=== PATIENT | female | born 2000 | race Caucasian/White ===

== ENCOUNTER 2023-04-28 10:53 | Outpatient (CLI) | payer MEDICAID, SELFPAY ==
--- NOTE | 2023-04-28 11:05 | US_ITS ---
WS: [id number] EARLY OBSTETRICAL ULTRASOUND (<14 WEEKS). HISTORY: SUPERVISION OF OTHER NORMAL , FIRST TRIMESTER COMPARISON: None available. Single intrauterine gestational sac is identified. Cardiac activity at 153 BPM. [place]-rump length joon sures 5.7 cm which corresponds to a gestation of 12w2d. Normal-appearing yolk sac and amnion demonstr ated. No subchorionic hemorrhage. No free fluid. Normal size ovaries with no mass. IMPRESSION: 1. Single intrauterine gestation of 12 weeks 2 days with an EDC of 11/08/2023. 2. Normal cardiac activity.
== END 2023-04-28 10:54 | disposition home or self-care (01) ==
LOC: RAD 10:56
PROVIDERS: Visit Provider Family Medicine
DX: O26.891 Other specified pregnancy related conditions, first trimester (principal); Z3A.12 12 weeks gestation of pregnancy
CPT/HCPCS: 76801

== ENCOUNTER 2023-06-21 11:30 | Outpatient (CLI) | payer MEDICAID, SELFPAY ==
--- NOTE | 2023-06-21 11:33 | US_ITS ---
WS: [id number] OBSTETRICAL ULTRASOUND COMPLETE HISTORY: ANATOMY CHECK/SECOND TRIMESTER COMPARISON: 04/28/2023 Single intrauterine gestation in Cephalic presentation. Cervix is Closed and normal length. Normal amount of amniotic fluid surrounds the fetus. Placenta: Anterior, no previa or abruption. Placenta grade 1 Heart: 141 BPM. Four chambers are identified. RIGHT and LEFT outflow tracts are unremarkable. Anatomy: Intracranial structures and spine are normal. kidneys, stomach and urinary bladd er are unremarkable. Abdominal wall, three-vessel cord and cord insertion site are normal. 4 extremities are present. profile: Unremarkable. Gender: Male. measurements: BPD = 4.6 cm = 20w0d; HC = 17.3 cm = 19w6d; AC = 14.9 cm = 20w1d; FL = 3.0 cm = 19w2d; EFW: 312 g. Biometry is internally concordant. AGA by ultrasound: 19w6d KAIT by ultrasound: 11/09/2023 IMPRESSION: 1. Single intrauterine gestation of 19w6d with an KAIT of 11/09/2023. Appropriate growth since the pr ior ultrasound. 2. Unremarkable screening survey of anatomy.
== END 2023-06-21 11:31 | disposition home or self-care (01) ==
LOC: RAD 11:30
PROVIDERS: PCP Family Medicine; Visit Provider Family Medicine
DX: Z34.82 Encounter for supervision of other normal pregnancy, second trimester (principal)
CPT/HCPCS: 76805

== ENCOUNTER 2023-07-07 15:00 | Outpatient (CLI) | payer MEDICAID, SELFPAY ==
[2023-07-07] VITALS (11 sets, daily range): BP systolic 90–110; BP diastolic 49–62; PULSE 66–81; BMI 32.4
[2023-07-07 16:18] LABS: Add Urine Culture? No; Bacteria Urine TRACE /hpf; Bilirubin Urine Neg (Negative); Blood Urine Neg (Negative); Glucose Urine UA Norm (Normal); Ketones Urine Negative (Negative); Leukocyte Esterase Urine Negative (Negative); Nitrate Urine Negative (Negative); Protein Urine Neg (Negative); RBC Urine 0-4 /hpf (0-2); Squamous Epithelial Cell Urine 0-4 /hpf (0-5); Urine Appearance Clear (CLEAR); Urine Color Yellow (Yellow); Urobilinogen Urine Norm (Negative); WBC Urine 0-4 /hpf (0-5); pH Urine 9 (5-7)
[2023-07-07] MEDS: acetaminophen 500 mg Tablet 1000 MG PO (17:00)
== END 2023-07-07 17:55 | disposition home or self-care (01) ==
LOC: OPOB 15:01 → OBGYN 15:02
PROVIDERS: PCP Family Medicine; Visit Provider Family Medicine
DX: O26.899 Other specified pregnancy related conditions, unspecified trimester (principal); Z3A.00 Weeks of gestation of pregnancy not specified; R10.9 Unspecified abdominal pain
CPT/HCPCS: 59025; 81001; 99211

== ENCOUNTER 2023-10-25 11:05 | Outpatient (CLI) | payer MEDICAID, SELFPAY ==
[2023-10-25 11:05] VITALS: BMI 35.4
[2023-10-25 11:27] VITALS: TEMP 35.9
[2023-10-25 11:28] VITALS: BP 123/86; PULSE 80
[2023-10-25 11:49] VITALS: BP 117/79; PULSE 85
[2023-10-25 11:53] LABS: Add Urine Microscopic? NO; Charge for UA Resulting for Rev
[2023-10-25 11:56] LABS: Basophils % 0.4 %; Eosinophils # 0.1 10^3/uL (0.0-0.8); Eosinophils % 0.5 %; Hematocrit 40.6 % (36-47); Lymphocytes # 2.1 10^3/uL (0.8-4.8); Lymphocytes % 19.3 %; Mean Corpuscular HGB Conc 33.7 g/dL (30-55); Mean Corpuscular Hemoglobin 29.3 pg (27-33); Mean Corpuscular Volume 86.8 fl (85-98); Mean Platelet Volume 11.2 fL (7.4-10.4); Monocytes # 0.6 10^3/uL (0.2-0.9); Monocytes % 5.2 %; Neutrophils # 8.05 10^3/uL (1.8-7.7); Neutrophils % 74.3 %; Nucleated Red Blood Cells % 0 %; Platelet Count 230 10^3/cmm (157-399); Red Blood Count 4.68 10^6/uL (3.85-5.65); Red Cell Distribution Width 13.3 % (12.1-15.1); White Blood Count 10.82 10^3/uL (3.29-11.43)
[2023-10-25 12:01] LABS: Bilirubin Urine Neg (Negative); Blood Urine Neg (Negative); Glucose Urine UA Norm (Normal); Ketones Urine Negative (Negative); Leukocyte Esterase Urine Negative (Negative); Nitrate Urine Negative (Negative); Protein Urine Neg (Negative); Specific Gravity, Urine 1.005 (1.005-1.030); Urine Appearance Clear (CLEAR); Urine Color Yellow (Yellow); Urobilinogen Urine Norm (Negative); pH Urine 7 (5-7)
[2023-10-25 12:08] VITALS: BP 118/77; PULSE 82
[2023-10-25 12:13] LABS: Alanine Aminotransferase 12 U/L (0-33); Albumin Level 3.3 g/dL (3.5-5.2); Alkaline Phosphatase 190 U/L (35-105); Aspartate Amino Transferase 19 U/L (0-32); Chloride 105 mmol/L (98-107); Globulin 3.5 g/dL (1.3-4.6); Glucose 93 mg/dL (65-115); Potassium 4.1 mmol/L (3.5-5.1); Sodium 135 mmol/L (136-145); Total Protein 6.8 g/dL (6.6-8.7); Uric Acid 3.2 mg/dL (2.4-5.7)
[2023-10-25 12:14] LABS: Urine Creatinine 36 mg/dL (28-217); Urine Protein Random 4 mg/dL
[2023-10-25 12:16] LABS: UPRO/UCREAT Ratio 0.11 mg/mg CR
[2023-10-25 12:29] LABS: Anion Gap 15.1 (5-19); Blood Urea Nitrogen 9 mg/dL (6-20); Carbon Dioxide 19 mmol/L (22-29); Osmolality Calculated 278 mOsm/kg (285-295); Total Bilirubin 0.2 mg/dL (0.15-1.2)
[2023-10-25 12:48] VITALS: BP 124/84; PULSE 63
== END 2023-10-25 12:53 | disposition home or self-care (01) ==
LOC: OPOB 11:15 → OBGYN 11:16
PROVIDERS: PCP Family Medicine; Visit Provider Family Medicine
DX: O16.9 Unspecified maternal hypertension, unspecified trimester (principal); Z3A.00 Weeks of gestation of pregnancy not specified
CPT/HCPCS: 36415; 59025; 80053; 81003; 82570; 84156; 84550; 85025; 99211

== ENCOUNTER 2023-10-26 12:03 | Outpatient (CLI) | payer MEDICAID, SELFPAY ==
[2023-10-26 12:28] VITALS: BP 129/72; PULSE 88
[2023-10-26 12:49] VITALS: BP 120/86; PULSE 78
[2023-10-26 13:08] VITALS: BP 129/88; PULSE 75
== END 2023-10-26 13:20 | disposition home or self-care (01) ==
LOC: OPOB 12:11 → OBGYN 12:12
PROVIDERS: PCP Family Medicine; Visit Provider Family Medicine
DX: O16.9 Unspecified maternal hypertension, unspecified trimester (principal); Z3A.00 Weeks of gestation of pregnancy not specified; R51.9 Headache, unspecified
CPT/HCPCS: 59025; 99211

== ENCOUNTER 2023-11-01 21:21 | Inpatient (IN) | payer MEDICAID, SELFPAY ==
[2023-11-01] VITALS (49 sets, daily range): BP systolic 107–170; BP diastolic 59–102; PULSE 64–105; RESP 16–18; TEMP 36.9; O2SAT 98–99; BMI 35.3
[2023-11-01] MEDS: miSOPROStol 100 mcg tablet 25 MCG VAGINAL (11:45)
[2023-11-01 12:12] LABS: Amphetamines Screen Urine Negative (Negative); Barbiturates Screen Urine Negative (Negative); Benzodiazepines Screen Urine Negative (Negative); Cocaine Screen Urine Negative (Negative); Opiate Screen Urine Negative (Negative); PCP Screen Urine Negative (Negative); THC Screen Urine Positive (Negative)
[2023-11-01 12:49] LABS: Basophils # 0.1 10^3/uL (0.0-0.1); Basophils % 0.5 %; Eosinophils # 0.1 10^3/uL (0.0-0.8); Eosinophils % 0.8 %; Hematocrit 38.2 % (36-47); Lymphocytes # 1.9 10^3/uL (0.8-4.8); Lymphocytes % 18.2 %; Mean Corpuscular HGB Conc 33.5 g/dL (30-55); Mean Corpuscular Hemoglobin 29.5 pg (27-33); Mean Platelet Volume 11.3 fL (7.4-10.4); Monocytes # 0.5 10^3/uL (0.2-0.9); Monocytes % 5.1 %; Neutrophils # 7.71 10^3/uL (1.8-7.7); Neutrophils % 75.1 %; Nucleated Red Blood Cells % 0 %; Platelet Count 218 10^3/cmm (157-399); Red Blood Count 4.34 10^6/uL (3.85-5.65); Red Cell Distribution Width 13.5 % (12.1-15.1); White Blood Count 10.26 10^3/uL (3.29-11.43)
--- NOTE | 2023-11-01 14:37 | PM.OBGYHP ---
Providers/Chief Complaint Admitting Physician: Jie Javier DO Primary Care Provider: Jie Javier DO Chief Complaint: Induction HPI TECHNICAL ADMINISTRATIVE ASSISTANT History of Present Illness Madonna Moses is a 22 year old female at 39w0d based on sure LMP c/w 12 wk US presenting for induction of labor with past medical history of depression/anxiety not currently on medications, intermittent asthma, history of past meth use, marijuana use, tobacco use. labs wnl. UDS positive for marijuana only. Denies cramping/contractions, LOF, vaginal bleeding. Good movement. care was good and starting in first trimester. Notable hx for meth use and does not have custody of her first child because of prior meth use. She has been very open about her past and has denied any meth use during this . Was clean prior to getting as well. She has had a couple mild range elevated blood pressures at home but only one persistent elevated mild range blood pressure in office. Pre-eclampsia work-up at time of elevated blood pressures was normal. Present Details : 2 Para: 1 Labs Blood type OB HPI: O (+) positive Rubella: Immune RPR: Negative GBS: Negative HBsAG: Negative Other Lab Information: HIV negative GC/Chlam negative Initial H/H 13.4/39.2 VZV immune UDS positive for cannabinoids Pap smear NILM [id number] negative for oiampsr45, 18, 21 1hr GTT passed (72) 3rd trimester H/H 12.5/36.1 Review of Systems Const: Denies: fever(s) or chills Card: Denies: chest pain or palpitations Resp: Denies: dyspnea or productive cough : Denies: difficulty voiding, dysuria or vaginal bleeding Medications/Allergies Home Medications Medication Instructions Recorded Confirmed Last Taken Type acetaminophen 500 mg tablet 500 mg PO Q6H PRN Pain 07/07/23 10/25/23 Unknown History albuterol 2 07/07/23 Unknown History 114-iron a-g-folate 1 1 tab PO DAILY 07/07/23 10/25/23 10/31/23 08:00 History escitalopram oxalate 5 mg/5 mL 5 mg PO DAILY 10/25/23 10/25/23 10/31/23 10:00 History oral solution Allergies Allergy/AdvReac Type Severity Reaction Status Date / Time No Known Allergies Allergy Verified 07/07/23 15:59 History History History 2 Term 1 0 Miscarriages/Ectopic 0 Living Children 1 Vitals/I&O/Wt Last Vital Signs Temp 98.4 F 11/01/23 13:20 Pulse 78 11/01/23 13:41 Resp 18 11/01/23 13:20 BP 110/73 11/01/23 13:41 O2 Del Method Room Air 11/01/23 10:45 Weight last 48 hrs Weight 181 lb Weight 181 lb Physical Exam Const: COMMON NORMALS: no acute distress, healthy appearing, alert and well nourished Resp: COMMON NORMALS: normal respiratory effort and clear to auscultation bilaterally Cardio: COMMON NORMALS: no JVD, regular rate, regular rhythm, S1 normal heart sound present, S2 normal heart sound present and No murmurs present (Cardio) Extremity: NARRATIVE EXTREMITY EXAM: No LE edema Psych: COMMON NORMALS: cooperative, normal affect and speech normal Data 11/01/23 11:40 Results Labs OB ([facility]): Blood Type O Positive 11/01/23 Antibody Screen Negative 11/01/23 Hct 38.2 % (36-47) 11/01/23 Hgb 12.80 g/dL (11.27-16.99) 11/01/23 Rho(D) Type Rh positive 11/01/23 Plt Count 218 10^3/cmm (157-399) 11/01/23 Uric Acid 3.2 mg/dL (2.4-5.7) 10/25/23 Urine Opiates Screen Negative ng/mL (Negative) 11/01/23 Ur Barbiturates Screen Negative ng/mL (Negative) 11/01/23 Ur Phencyclidine Scrn Negative ng/mL (Negative) 11/01/23 Ur Amphetamines Screen Negative ng/mL (Negative) 11/01/23 U Benzodiazepines Scrn Negative ng/mL (Negative) 11/01/23 Urine Cocaine Screen Negative ng/mL (Negative) 11/01/23 U Marijuana (THC) Screen Positive ng/mL (Negative) H 11/01/23 A&P Assessment and plan (1) Term : (2) Elective induction of labor planned: Plan 22yo at 39w0d presenting for elective induction of labor- admitted. 1 dose cytotec with initial SVE of 2/50/-3 and repeat exam after 4 hours 3/60/-2. Routine CBC, UDS due to hx. Ctx irregular q2-5 minutes after cytotec. Intermittent EFM as long as Category I FHT. Has been Category I FHT since admission. Consider AROM and continue expectant management. Plan to add pitocin if cervical change does not continue. Fentanyl protocol. May have epidural if desired. Attestations Medical Necessity Statement*: Madonna Moses's hospital stay will require greater than 2 midnights for labor and delivery and care. Coding Level of Care Code Acute Code for Chg Fwd Diagnoses Term Z34.90 Elective induction of labor planned
[2023-11-01] MEDS: lactated ringers 1,000 ML 999 ML IV ×2 (16:55→21:00)
[2023-11-01] MEDS: oxytocin 30 UNIT/500 ML BAG 600 UNIT IV (21:14)
--- NOTE | 2023-11-01 21:33 | PM.DELIVERY ---
Delivery Note: Date of delivery: November 01, 2023 Pre-delivery diagnoses: Term Induction of labor Post-delivery diagnoses: Term delivery of viable male Procedure: Spontaneous vaginal delivery Delivering Physician: Jie Javier DO Estimated blood loss (mL): 150 Pre-Delivery Course: Patient was admitted on 11/01/2023 with an SVE of 2/50/-3. She was given 1 dose Cytotec and rechecked 4 hours later with cervical change to 3/60/-3. At that point her contractions were gradually increasing and AROM was performed at 1645 with clear fluid with SVE of 4/80/-3 following. She then obtained an epidural anesthesia and gradually progressed to complete. heart tones overall category I with 2 deep late decelerations after AROM that resolved with positioning. Delivery: Patient progressed to complete. Patient placed in lithotomy position. Patient pushed with adequate effort. Head delivered in KELBY position, no nuchal cord was present. Shoulders and rest of body delivered without difficulty with adequate epidural anesthesia. Mouth and nares bulb suctioned. Infant placed on maternal abdomen. Cord clamped and cut after 1 minute delay. Placenta spontaneously delivered and noted to be intact. Pitocin started. Fundus was noted to be firm with massage. The vagina and cervix were inspected and no lacerations were noted. Bilateral periurethral abrasions were noted. Fundus was again noted to be firm. Male born at 2110 with 8/9 weighing 6 pounds 8 ounces and measuring 20 inches in length, 13.75 head circumference and 12.5 inches chest circumference. Placenta noted to be intact with centrally inserted umbilical cord and three-vessel cord. Complications: Maternal none Infant none History History History 2 Term 2 0 Miscarriages/Ectopic 0 Living Children 2 A&P Assessment and plan (1) Spontaneous vaginal delivery: Coding Level of Care Code Acute Code for Chg Fwd Diagnoses Spontaneous vaginal delivery O80
--- NOTE | 2023-11-01 23:00 | P.ANESASSM_ITS ---
Pre-Anesthetic Assessment Height/Weight: Height 1.52 m Weight 82.1 kg Temp Pulse Resp BP Pulse Ox O2 Del Method 98.1 F 80 18 114/70 99 Room Air 11/02/23 06:00 11/02/23 06:00 11/02/23 06:00 11/02/23 06:00 11/01/23 17:23 11/01/23 10:45 Epidural Familial anesthetic complications: None Was Beta Marino taken within 24 hours: N/A Was Clonidine taken within 24 hours: N/A Social No alcohol and No tobacco Exam alert, oriented x 3, clear to auscultation bilaterally and regular rate & rhythm Anesthetic Plan ASA status: 2 Risk of > 500 ml blood loss (7ml/kg in children): Yes, adequate IV access and fluids planned Medications/Allergies Home Medications Medication Instructions Recorded Confirmed Last Taken Type acetaminophen 500 mg tablet 500 mg PO Q6H PRN Pain 07/07/23 10/25/23 Unknown History albuterol 2 07/07/23 Unknown History 114-iron a-g-folate 1 1 tab PO DAILY 07/07/23 10/25/23 10/31/23 08:00 History escitalopram oxalate 5 mg/5 mL 5 mg PO DAILY 10/25/23 10/25/23 10/31/23 10:00 History oral solution Allergies Allergy/AdvReac Type Severity Reaction Status Date / Time No Known Allergies Allergy Verified 07/07/23 15:59 PFSH Anesthesia Female Reproductive History : 2 Data Anesthesia 11/01/23 11:40 Short CBC 11/01/23 Range/Units 11:40 WBC 10.26 (3.29-11.43) 10^3/uL Hgb 12.80 (11.27-16.99) g/dL Hct 38.2 (36-47) % MCV 88.0 (85-98) fl Plt Count 218 (157-399) 10^3/cmm Neut % (Auto) 75.1 % Neut # (Auto) 7.71 H (1.8-7.7) 10^3/uL Blood Bank 11/01/23 11:40 Blood Type O Positive Rho(D) Type Rh positive Antibody Screen Negative Cardiac Studies: 2 No Data to Display Anesthesia Procedures Epidural Time Out Performed: Yes Consents Signed: Procedure Consent Consent: requested by attending/covering physician, from patient, from other, risks and benefits reviewed and patient agrees to proceed Lumbar Level: L3-L4 Epidural position: sitting Epidural procedure: sterile prep of area, 1% lidocaine to numb the area, 18 g needle, negative for paresthesia passed, neg for paresthesia, test dose given, 1.5% xylocaine 1:200k epi (5), 0.2% Ropivacaine bolus ml (5), placed PCEA, no systemic response, sterile dressing applied, L.U.D. no apparent complications and 0.2% Ropiavacaine @ mls/hr (13) Additional Comments: YOSHI at 5 cm, threaded to 11 cm Other Information patient seen, evaluated and procedure performed 11/01/2023 at approximately 1715
[2023-11-02] VITALS (10 sets, daily range): BP systolic 110–133; BP diastolic 66–86; PULSE 78–93; RESP 16–18; TEMP 36.6–37; O2SAT 98
--- NOTE | 2023-11-02 08:00 | ANE.PACU2 ---
Inpatient post-anesthesia follow up: Airway intact: Yes Vital signs: Temperature 98.2 F Pulse Rate 87 Respiratory Rate 16 Blood Pressure 127/85 Pulse Oximetry 98 Oxygen Delivery Me thod Room Air Oxygen Flow Rate Fraction of Inspir ed Oxygen Hydration adequate: Yes Nausea and vomiting: No Pain level: 1 Mental status: Baseline Epidural Start/End: Epidural Start Date: 11/01/23 Epidural Start Time: 17:10 Epidural End Date: 11/01/23 Epidural End Time: 21:30
[2023-11-02] MEDS: escitalopram 10 mg Tablet 5 MG PO (08:30)
[2023-11-02] MEDS: PRENATAL VIT NO.130/IRON/FOLIC 1 EACH TABLET PO (08:30)
[2023-11-02] MEDS: docusate sodium 100 mg Capsule PO (08:30)
[2023-11-02] MEDS: ibuprofen 800 mg tablet PO (08:30)
[2023-11-02 08:50] LABS: Hematocrit 39.6 % (36-47); Mean Corpuscular HGB Conc 33.6 g/dL (30-55); Mean Corpuscular Hemoglobin 29.6 pg (27-33); Mean Corpuscular Volume 88.2 fl (85-98); Mean Platelet Volume 11.3 fL (7.4-10.4); Platelet Count 212 10^3/cmm (157-399); Red Blood Count 4.49 10^6/uL (3.85-5.65); Red Cell Distribution Width 13.4 % (12.1-15.1); White Blood Count 15.68 10^3/uL (3.29-11.43)
--- NOTE | 2023-11-02 20:21 | PM.OBGYDC ---
Discharge Providers CAMPAIGN COORDINATOR Date of Admission: 11/01/23 21:21 Date of Discharge: 11/02/23 Attending Provider at Admission: Jie Javier DO Attending Provider at Discharge: Jie Javier DO Primary Care Provider: Jie Javier DO Diagnoses at Discharge Discharge Diagnosis (1) Spontaneous vaginal delivery: Status: Acute Reason for Visit Reason for Visit: Induction Hospital Course Hospital Course Estimated blood loss (mL): 150 Pre-Delivery Course: Patient was admitted on 11/01/2023 with an SVE of 2/50/-3. She was given 1 dose Cytotec and rechecked 4 hours later with cervical change to 3/60/-3. At that point her contractions were gradually increasing and AROM was performed at 1645 with clear fluid with SVE of 4/80/-3 following. She then obtained an epidural anesthesia and gradually progressed to complete. heart tones overall category I with 2 deep late decelerations after AROM that resolved with positioning. Delivery: Patient progressed to complete. Patient placed in lithotomy position. Patient pushed with adequate effort. Head delivered in KELBY position, no nuchal cord was present. Shoulders and rest of body delivered without difficulty with adequate epidural anesthesia. Mouth and nares bulb suctioned. Infant placed on maternal abdomen. Cord clamped and cut after 1 minute delay. Placenta spontaneously delivered and noted to be intact. Pitocin started. Fundus was noted to be firm with massage. The vagina and cervix were inspected and no lacerations were noted. Bilateral periurethral abrasions were noted. Fundus was again noted to be firm. Male born at 2110 with 8/9 weighing 6 pounds 8 ounces and measuring 20 inches in length, 13.75 head circumference and 12.5 inches chest circumference. Placenta noted to be intact with centrally inserted umbilical cord and three-vessel cord. Complications: Maternal none none course: Patient underwent on 11/01/23. course was uncomplicated. Following delivery patient ambulated well, tolerated a normal diet without nausea or vomiting. Pain was well controlled on PO medications, well, no leg/calf pain, no calf/leg swelling, normal urination, passing gas and normal bowel movements. Vaginal bleeding thin lochia and decreasing. labs significant for hemoglobin of 13.3. Follow-up planned for 2 and 6 weeks . Warning signs for endometritis, pre-eclampsia, DVT/PE, mastitis were reviewed, discussed additional warning signs including increased vaginal bleeding, worsening abdominal pain. Pelvic rest and activity precautions reviewed as well. She is discharged on 11/02/23 in stable condition. Information Peripartum Data: Delivery Method: Vaginal Physical Exam Const: COMMON NORMALS: no acute distress, healthy appearing, alert and well nourished Neck/C-Spine: COMMON NORMALS: no JVD Resp: COMMON NORMALS: normal respiratory effort and clear to auscultation bilaterally AUSCULTATION: clear to auscultation bilaterally Cardio: COMMON NORMALS: no JVD, regular rate, regular rhythm, S1 normal heart sound present, S2 normal heart sound present and No murmurs present (Cardio) RATE: regular rate RHYTHM: regular rhythm HEART SOUNDS: S1 normal heart sound present and S2 normal heart sound present : OTHER: Uterine fundus firm and below the umbilicus Extremity: NARRATIVE EXTREMITY EXAM: No LE edema Neuro: SENSORIUM/ORIENTATION: Yes alert Psych: COMMON NORMALS: cooperative, normal affect and speech normal SPEECH: Yes normal speech Urinary Catheter Management: Lucas: Cath Placed During This Visit: yes, but has since been removed by the nurse Reason for Continuing Indwelling Catheter: Required Immobilization for Trauma or Surgery or Anesthesia Urinary Catheter Date of Insertion: 11/01/23 Urinary Catheter Time of Insertion: 17:35 Date Urinary Catheter Removed: 11/01/23 Time Urinary Catheter Discontinued: 20:30 History History History 2 Term 2 0 Miscarriages/Ectopic 0 Living Children 2 Discharge Data Studies Completed and Pending Laboratory Results WBC 15.68 10^3/uL (3.29-11.43) H 11/02/23 08:38 RBC 4.49 10^6/uL (3.85-5.65) 11/02/23 08:38 Hgb 13.30 g/dL (11.27-16.99) 11/02/23 08:38 Hct 39.6 % (36-47) 11/02/23 08:38 MCV 88.2 fl (85-98) 11/02/23 08:38 MCH 29.6 pg (27-33) 11/02/23 08:38 MCHC 33.6 g/dL (30-55) 11/02/23 08:38 RDW 13.4 % (12.1-15.1) 11/02/23 08:38 Plt Count 212 10^3/cmm (157-399) 11/02/23 08:38 MPV 11.3 fL (7.4-10.4) H 11/02/23 08:38 Neut % (Auto) 75.1 % 11/01/23 11:40 Lymph % (Auto) 18.2 % 11/01/23 11:40 [place] % (Auto) 5.1 % 11/01/23 11:40 Eos % (Auto) 0.8 % 11/01/23 11:40 Baso % (Auto) 0.5 % 11/01/23 11:40 Neut # (Auto) 7.71 10^3/uL (1.8-7.7) H 11/01/23 11:40 Lymph # (Auto) 1.9 10^3/uL (0.8-4.8) 11/01/23 11:40 [place] # (Auto) 0.5 10^3/uL (0.2-0.9) 11/01/23 11:40 Eos # (Auto) 0.1 10^3/uL (0.0-0.8) 11/01/23 11:40 Baso # (Auto) 0.1 10^3/uL (0.0-0.1) 11/01/23 11:40 Nucleated RBC % (auto) 0 % 11/01/23 11:40 Nucleated RBCs # 0.0 /100WBC 11/01/23 11:40 Urine Opiates Screen Negative ng/mL (Negative) 11/01/23 11:00 Ur Barbiturates Screen Negative ng/mL (Negative) 11/01/23 11:00 Ur Phencyclidine Scrn Negative ng/mL (Negative) 11/01/23 11:00 Ur Amphetamines Screen Negative ng/mL (Negative) 11/01/23 11:00 U Benzodiazepines Scrn Negative ng/mL (Negative) 11/01/23 11:00 Urine Cocaine Screen Negative ng/mL (Negative) 11/01/23 11:00 U Marijuana (THC) Screen Positive ng/mL (Negative) H 11/01/23 11:00 Blood Type O Positive 11/01/23 11:40 Rho(D) Type Rh positive 11/01/23 11:40 Antibody Screen Negative 06/05/24 11:40 Vitals Last Vital Signs Temp 98.1 F 11/02/23 09:23 Pulse 82 11/02/23 09:23 Resp 16 11/02/23 09:23 BP 127/79 11/02/23 09:23 Pulse Ox 98 11/02/23 09:23 O2 Del Method Room Air 11/02/23 09:23 Results Labs OB ([facility]): Blood Type O Positive 11/01/23 Antibody Screen Negative 11/01/23 Hct 39.6 % (36-47) 11/02/23 Hgb 13.30 g/dL (11.27-16.99) 11/02/23 Rho(D) Type Rh positive 11/01/23 Plt Count 212 10^3/cmm (157-399) 11/02/23 Uric Acid 3.2 mg/dL (2.4-5.7) 10/25/23 Urine Opiates Screen Negative ng/mL (Negative) 11/01/23 Ur Barbiturates Screen Negative ng/mL (Negative) 11/01/23 Ur Phencyclidine Scrn Negative ng/mL (Negative) 11/01/23 Ur Amphetamines Screen Negative ng/mL (Negative) 11/01/23 U Benzodiazepines Scrn Negative ng/mL (Negative) 11/01/23 Urine Cocaine Screen Negative ng/mL (Negative) 11/01/23 U Marijuana (THC) Screen Positive ng/mL (Negative) H 11/01/23 Discharge Plan Discharge Patient Disposition: Home Condition: Stable Prescriptions: New ibuprofen 800 mg Tablet 800 mg PO TID Qty: 90 0RF docusate sodium 100 mg Capsule 100 mg PO BID Qty: 60 0RF Continued acetaminophen 500 mg Tablet 500 mg PO Q6H PRN (Reason: Pain) albuterol 2 114-iron a-g-folate 1 1 tab PO DAILY escitalopram oxalate 5 mg/5 mL Solution 5 mg PO DAILY Discharge Orders: Discharge Order (Routine); Ordered 11/02/23 Ordered By: Jie Javier Discharge Diet: Regular Discharge Activity: Increase activity as tolerated Patient Instructions: Depression (DC), Preeclampsia and Eclampsia After Delivery (GEN), Hemorrhage (DC), OB Discharge Report, OB Food/Drug Interaction Guide, OB Care at Home, Opioid Safety Activity Restrictions/Additional Instructions: Pelvic rest for 6 weeks. Follow-up with Dr. Javier at 2 and 6 weeks . Discharge Attestations CAMPAIGN COORDINATOR Time Spent in Discharge Care*: less than 30 min Coding Level of Care Code Acute Code for Chg Fwd Diagnoses Spontaneous vaginal delivery O80
== END 2023-11-02 23:35 | disposition home or self-care (01) | DRG 807 ==
LOC: OPOB 21:21 → OBGYN 21:21
PROVIDERS: Admitting Provider Family Medicine; PCP Family Medicine; Visit Provider Family Medicine
DX: O99.324 Drug use complicating childbirth (principal); Z37.0 Single live birth; F12.90 Cannabis use, unspecified, uncomplicated; O76 Abnormality in fetal heart rate and rhythm complicating labor and delivery; O99.52 Diseases of the respiratory system complicating childbirth; Z3A.39 39 weeks gestation of pregnancy; F15.11 Other stimulant abuse, in remission; J45.20 Mild intermittent asthma, uncomplicated
CPT/HCPCS: 36415; 51702; 59025; 59409; 80306; 85025; 85027; 86850; 86900; 99211; J2590; J7120

== ENCOUNTER 2024-11-16 20:07 | Emergency (ER) | payer MEDICAID, SELFPAY ==
[2024-11-16 20:14] VITALS: BP 96/64; PULSE 73; RESP 16; TEMP 36.8; O2SAT 96; BMI 36.1
--- NOTE | 2024-11-16 20:18 | ECG_ITS ---
[facility] Pat Name: Madonna Moses Department: Room: Gender: Female Refrigeration Unit Repairer: : [id number] Requested By: Sara Ivory Order Number: [id number] Lundy MD: Mayte France M.D. Measurements Intervals [place] Rate: 80 P: 65 UT: 140 QRS: 70 QRSD: 90 T: 64 QT: 360 QTc: 417 Interpretive Statements SINUS RHYTHM WITH SINUS ARRHYTHMIA No previous ECG available for comparison Electronically Signed On 11-17-2024 19:19:26 CDT by Mayte France M.D. [email or web address]
--- NOTE | 2024-11-16 20:42 | XRR_ITS ---
PROCEDURE INFORMATION: Exam: XR Chest Exam date and time: 11/16/2024 9:30 PM Age: 23 years old Clinical indication: Chest pressure; PT arrives with C/O chest pain. PT stated when the pain started it was medial chest then radiated to the right side into her abd. PT stated it felt like a burning sensation when it started. ; Additional info: Cp TECHNIQUE: Imaging protocol: Radiologic exam of the chest. Views: 1 view. COMPARISON: No relevant prior studies available. FINDINGS: Lungs: Mildly hypoinflated, but appear clear. No consolidation. Pleural spaces: No significant pleural effusion. No pneumothorax. Heart/Mediastinum: Within normal limits. Bones/joints: Intact. Other findings: None. XR/XR chest 1V portable [id number] IMPRESSION: 1. Mild pulmonary hypoinflation. 2. No radiographic evidence for acute cardiopulmonary disease.
[2024-11-16 21:26] VITALS: BP 120/67; PULSE 78; RESP 16; O2SAT 97
--- NOTE | 2024-11-16 21:36 | W.ED.ABDPA2 ---
HPI - Abdominal Pain General: Chief Complaint: Chest Pain Stated Complaint: CP Going down R Side feels Tight Time Seen by Provider: 11/16/24 20:13 Source: patient Mode of arrival: ambulatory Limitations: no limitations History of Present Illness: Patient is a 23-year-old female presents to ED today with complaint of chest and abdominal pain. She states around 5 PM while at work, she began developing substernal chest pain that radiated down into her epigastric region and around to her right upper quadrant. She states she was instructed by one of her coworkers to take 2 Tums and she states she immediately vomited them back up. At time of my initial examination, patient has no complaints of chest pain. She does still have some minor abdominal pain. She does not feel nauseous. She is not having any urinary symptoms. No fevers. She has not noted any changes to her bowel movements. Vital signs are stable upon arrival. MD elicited complaint: abdominal pain and other (chest pain-resolved) Pertinent past history: none Onset (ago): hour(s) Pain Consistency: other (improving) Location: Chest, Epigastric and RUQ Severity: mild Pain scale (0-10): 5 Radiation: none Migration to: no migration Exacerbating factors: nothing Relieving factors: nothing Associated Symptoms: Reports no associated symptoms and vomiting (x1 after she took Tums); Denies change in bowel habits, chills, dysuria, fever(s), nausea and syncope Related Data Date of Last Menstrual Period: 11/04/24 Home Medications ?Medication ?Instructions ?Recorded ?Confirmed acetaminophen 500 mg tablet 500 mg PO Q6H PRN Pain 07/07/23 10/25/23 albuterol 2 07/07/23 114-iron a-g-folate 1 1 tab PO DAILY 07/07/23 10/25/23 escitalopram oxalate 5 mg/5 mL 5 mg PO DAILY 10/25/23 10/25/23 oral solution Previous Rx's ?Medication ?Instructions ?Recorded docusate sodium 100 mg capsule 100 mg PO BID #60 caps 11/02/23 ibuprofen 800 mg tablet 800 mg PO TID #90 tabs 11/02/23 famotidine 40 mg tablet (Pepcid) 40 mg PO BID #28 tabs 11/16/24 pantoprazole 40 mg tablet,delayed 40 mg PO DAILY 14 days #28 tabs 11/16/24 release (Protonix) Allergies Allergy/AdvReac Type Severity Reaction Status Date / Time No Known Allergies Allergy Verified 07/07/23 15:59 Review of Systems Const: Denies: fever(s), chills, body aches, fatigue or malaise ENMT: Denies: throat pain or odynophagia Card: Reports: chest pain (resolved); Denies: palpitations, irregular heart rhythm, edema, swelling of feet/ankles, lightheadedness, syncope, pre-syncope, dyspnea on exertion, orthopnea, leg pain with exertion or acrocyanosis Resp: Denies: dyspnea, pain on inspiration or hemoptysis GI: Reports: abdominal pain and vomiting (x1 after she took Tums); Denies: nausea or change in bowel habits : Denies: flank pain, difficulty voiding, dysuria, urinary frequency or urinary urgency Musc: Denies: back pain Neuro: Denies: headache(s) or dizziness [facility] Female Reproductive History: Date of last menstrual period: 11/04/24 Physical Exam Const: COMMON NORMALS: no acute distress, patient oriented x3, no limitations, healthy appearing, alert and well nourished GENERAL APPEARANCE: cooperative NUTRITIONAL APPEARANCE: overweight (BMI 36) ORIENTATION/CONSCIOUSNESS: Yes awake, Yes oriented to person, Yes oriented to place and Yes oriented to time Eye: COMMON NORMALS: no scleral icterus Chest: COMMONS NORMALS: normal inspection of the chest and normal palpation of entire chest wall Resp: COMMON NORMALS: normal respiratory effort and clear to auscultation bilaterally AUSCULTATION: clear to auscultation bilaterally Cardio: COMMON NORMALS: regular rate and regular rhythm RATE: regular rate RHYTHM: regular rhythm GI: COMMON NORMALS: Normal to inspection, nondistended, normoactive bowel sounds present, Soft to palpation and No hepatosplenomegaly present INSPECTION: Yes normal to inspection AUSCULTATION: Yes normoactive bowel sounds PALPATION: Yes Soft to palpation, Yes Tenderness to palpation present (GI) (mild tenderness epigastric, RUQ; non-surgical examination), No Guarding due to palpation present (GI), No Rigid due to palpation and Yes No hepatosplenomegaly present : COMMON NORMALS: Yes no CVA tenderness BLADDER/KIDNEY EXAM: Yes no CVA tenderness Back/Pelvis: COMMON NORMALS: no CVA tenderness Neuro: COMMON NORMALS: patient oriented x3 SENSORIUM/ORIENTATION: Yes alert, Yes oriented to person, Yes oriented to place and Yes oriented to time Course Vital Signs: Vital signs: Vital Signs Temperature 98.3 F 11/16/24 20:14 Pulse Rate 78 11/16/24 21:26 Respiratory Rate 16 11/16/24 21:26 Blood Pressure 120/67 11/16/24 21:26 Pulse Oximetry 97 11/16/24 21:26 Oxygen Delivery Me thod Room Air 11/16/24 21:26 MDM - Abdominal Pain Medical Decision Making Patient appears in absolutely no acute distress. Her abdominal exam is nonsurgical. Her vital signs are stable. Blood work overall is nonactionable. She did gain quite a bit of relief following a GI cocktail. Will place her on an H2/PPI over the next 2 weeks. Recommend follow-up with primary care. Return to ED precautions discussed. Medical Records I reviewed the patient's medical records. Lab Data I reviewed the patient's lab results. 11/16/24 21:42 11/16/24 21:42 Labs/Radiology: Radiology Impressions Chest X-Ray 11/16/24 20:42 IMPRESSION: 1. Mild pulmonary hypoinflation. 2. No radiographic evidence for acute cardiopulmonary disease. Laboratory Results WBC 13.11 10^3/uL (3.29-11.43) H 11/16/24 21:42 RBC 4.44 10^6/uL (3.85-5.65) 11/16/24 21:42 Hgb 12.80 g/dL (11.27-16.99) 11/16/24 21:42 Hct 39.6 % (36-47) 11/16/24 21:42 MCV 89.2 fl (85-98) 11/16/24 21:42 MCH 28.8 pg (27-33) 11/16/24 21:42 MCHC 32.3 g/dL (30-55) 11/16/24 21: RDW 12.8 % (12.1-15.1) 11/16/24 21:42 Plt Count 359 10^3/cmm (157-399) 11/16/24 21:42 MPV 9.5 fL (7.4-10.4) 11/16/24 21:42 Neut % (Auto) 65.4 % 11/16/24 21:42 Lymph % (Auto) 22.7 % 11/16/24 21:42 [place] % (Auto) 6.1 % 11/16/24 21:42 Eos % (Auto) 5.0 % 11/16/24 21:42 Baso % (Auto) 0.5 % 11/16/24 21:42 Neut # (Auto) 8.59 10^3/uL (1.8-7.7) H 11/16/24 21:42 Lymph # (Auto) 3.0 10^3/uL (0.8-4.8) 11/16/24 21:42 [place] # (Auto) 0.8 10^3/uL (0.2-0.9) 11/16/24 21:42 Eos # (Auto) 0.7 10^3/uL (0.0-0.8) 11/16/24 21: Baso # (Auto) 0.1 10^3/uL (0.0-0.1) 11/16/24 21:42 Nucleated RBC % (auto) 0 % 11/16/24 21:42 Nucleated RBCs # 0.0 /100WBC 11/16/24 21:42 Sodium 136 mmol/L (136-145) 11/16/24 21:42 Potassium 4.5 mmol/L (3.5-5.1) 11/16/24 21:42 Chloride 101 mmol/L (98-107) 11/16/24 21:42 Carbon Dioxide 25 mmol/L (22-29) 11/16/24 21:42 Anion Gap 14.5 (5-19) 11/16/24 21:42 BUN 15 mg/dL (6-20) 11/16/24 21:42 Creatinine 0.8 mg/dL (0.5-0.9) 11/16/24 21:42 GFR Calculation 88.9 mL/min (90-130) L 11/16/24 21:42 Glucose 87 mg/dL (65-115) 11/16/24 21:42 Calculated Osmolality 282 mOsm/kg (285-295) L 11/16/24 21:42 Calcium 9.5 mg/dL (8.5-10.5) 11/16/24 21:42 Total Bilirubin 0.3 mg/dL (0.15-1.2) 06/21/25 21:42 AST 21 U/L (0-32) 11/16/24 21:42 ALT 26 U/L (0-33) 11/16/24 21:42 Alkaline Phosphatase 96 U/L (35-105) 11/16/24 21:42 Troponin T Baseline < 6 ng/L (0-10) 11/16/24 21:42 Total Protein 7.2 g/dL (6.6-8.7) 11/16/24 21:42 Albumin 4.5 g/dL (3.5-5.2) 11/16/24 21:42 Globulin 2.7 g/dL (1.3-4.6) 11/16/24 21:42 HCG, Qual Negative (Negative) 11/16/24 21:42 No radiology studies performed this visit Discharge Plan Discharge Patient Disposition: Home Clinical Impression: Abdominal pain Qualifiers: Abdominal location: upper abdomen, unspecified Qualified Code(s): R10.10 - Upper abdominal pain, unspecified Condition: Stable Prescriptions: New famotidine [Pepcid] 40 mg tablet 40 mg PO BID Qty: 28 0RF pantoprazole [Protonix] 40 mg tablet,delayed release (DR/EC) 40 mg PO DAILY 14 Days Qty: 28 0RF No Action ibuprofen 800 mg Tablet 800 mg PO TID Qty: 90 0RF docusate sodium 100 mg Capsule 100 mg PO BID Qty: 60 0RF acetaminophen 500 mg Tablet 500 mg PO Q6H PRN (Reason: Pain) albuterol 2 114-iron a-g-folate 1 1 tab PO DAILY escitalopram oxalate 5 mg/5 mL Solution 5 mg PO DAILY Discharge Orders: Discharge ED (Routine); Ordered 11/16/24 Ordered By: Sara Ivory Referrals: Jie Javier DO [Primary Care Provider, SPEECH SCIENTIST] Patient Instructions: Abdominal Pain (ED) Activity Restrictions/Additional Instructions: As we discussed, we will trial you on 2 different stomach/GI medications to see if this helps with your discomfort. We spoke about a bland diet over the next 48 hours and slowly advance as tolerated. We will place a case management referral to get you set up with a primary care provider for ER follow-up. As we discussed, I would like you to return to the emergency department for onset of severe constant abdominal pain, repetitive episodes of vomiting, yellowing to your skin or eyes, fevers, generally feeling worse or unwell, or any other concerns you may have. Print Language: Polish Coding Level of Care Code ED Building Maintenance Mechanic for Danni Reid
[2024-11-16] MEDS: lidocaine 2% viscous 15 ML, aluminum-mag hydrox-simethicon 30 ML, sucralfate oral liq 1 GM PO (21:47)
[2024-11-16 22:06] LABS: Basophils # 0.1 10^3/uL (0.0-0.1); Basophils % 0.5 %; Eosinophils # 0.7 10^3/uL (0.0-0.8); Hematocrit 39.6 % (36-47); Lymphocytes % 22.7 %; Mean Corpuscular HGB Conc 32.3 g/dL (30-55); Mean Corpuscular Hemoglobin 28.8 pg (27-33); Mean Corpuscular Volume 89.2 fl (85-98); Mean Platelet Volume 9.5 fL (7.4-10.4); Monocytes # 0.8 10^3/uL (0.2-0.9); Monocytes % 6.1 %; Neutrophils # 8.59 10^3/uL (1.8-7.7); Neutrophils % 65.4 %; Nucleated Red Blood Cells % 0 %; Platelet Count 359 10^3/cmm (157-399); Red Blood Count 4.44 10^6/uL (3.85-5.65); Red Cell Distribution Width 12.8 % (12.1-15.1); White Blood Count 13.11 10^3/uL (3.29-11.43)
[2024-11-16 22:15] LABS: HCG, Serum Qual Negative (Negative)
[2024-11-16 22:29] LABS: Troponin(5th) Baseline < 6 ng/L (0-10)
[2024-11-16 22:31] LABS: Alanine Aminotransferase 26 U/L (0-33); Albumin Level 4.5 g/dL (3.5-5.2); Alkaline Phosphatase 96 U/L (35-105); Anion Gap 14.5 (5-19); Aspartate Amino Transferase 21 U/L (0-32); Blood Urea Nitrogen 15 mg/dL (6-20); Calcium 9.5 mg/dL (8.5-10.5); Carbon Dioxide 25 mmol/L (22-29); Chloride 101 mmol/L (98-107); Globulin 2.7 g/dL (1.3-4.6); Glomerular Filtration Rate 88.9 mL/min (90-130); Glucose 87 mg/dL (65-115); Osmolality Calculated 282 mOsm/kg (285-295); Potassium 4.5 mmol/L (3.5-5.1); Sodium 136 mmol/L (136-145); Total Bilirubin 0.3 mg/dL (0.15-1.2); Total Protein 7.2 g/dL (6.6-8.7)
[2024-11-16 22:44] VITALS: BP 92/54; PULSE 78; RESP 16; O2SAT 97
--- NOTE | 2024-11-20 07:34 | DCPLANNER ---
Message sent to Primary care for follow up-Patient appears in absolutely no acute distress. Her abdominal exam is nonsurgical. Her vital signs are stable. Blood work overall is nonactionable. She did gain quite a bit of relief following a GI cocktail. Will place her on an H2/PPI over the next 2 weeks. Recommend follow-up with primary care. Return to ED precautions discussed.
== END 2024-11-16 22:45 | disposition home or self-care (01) ==
PROVIDERS: Emergency Medicine; Emergency Provider Physician Assistant; PCP Family Medicine
DX: R10.10 Upper abdominal pain, unspecified (principal)
CPT/HCPCS: 36415; 71045; 80053; 84484; 84703; 85025; 93005; 99285; J9999

== ENCOUNTER 2024-11-25 09:11 | Outpatient (CLI) | payer MEDICAID, SELFPAY ==
--- NOTE | 2024-11-25 09:23 | USR_ITS ---
PROCEDURE INFORMATION: Exam: US Abdomen; Limited Exam date and time: 11/25/2024 9:29 AM Age: 23 years old Clinical indication: Abdominal pain; Localized; Right upper quadrant (ruq); Additional info: Ruq pain TECHNIQUE: Imaging protocol: Real time ultrasound of the abdomen with image documentation. Limited exam focused on the region of clinical interest. COMPARISON: US OB >= 14 weeks fetus [id number] 06/21/2023 11:45 AM FINDINGS: There is a echogenic area within the gallbladder without shadowing which appears mobile. This finding likely represents a gallbladder polyp. The gallbladder wall is normal in measuring 2 mm. The common bile duct measures 3 mm. The liver shows heterogenous echogenicity no focal abnormality. Liver span is 14.7 cm. The right kidney measures 10.2 cm x 4.5 cm x 4.4 cm US/US abdomen limited [id number] IMPRESSION: 1. Echogenic nodules within the gallbladder probable gallbladder polyps 2. Otherwise unremarkable abdominal sonogram .
== END 2024-11-25 09:12 | disposition home or self-care (01) ==
LOC: RAD 09:13
PROVIDERS: PCP Family Medicine; Visit Provider Family Medicine
DX: R10.11 Right upper quadrant pain (principal); K82.8 Other specified diseases of gallbladder; K76.89 Other specified diseases of liver
CPT/HCPCS: 76705

== ENCOUNTER 2024-12-02 08:24 | Outpatient (CLI) | payer MEDICAID, SELFPAY ==
--- NOTE | 2024-12-02 08:29 | CTR_ITS ---
PROCEDURE INFORMATION: Exam: CT Abdomen And Pelvis With Contrast Exam date and time: 12/02/2024 9:43 AM Age: 23 years old Clinical indication: Abdominal pain; Localized; Right lower quadrant (rlq); Additional info: Rlq abdominal pain TECHNIQUE: Imaging protocol: Computed tomography of the abdomen and pelvis with contrast. Radiation optimization: All CT scans at this facility use at least one of these dose optimization techniques: automated exposure control; mA and/or kV adjustment per patient size (includes targeted exams where dose is matched to clinical indication); or iterative reconstruction. Contrast material: OMNI 350; Contrast volume: 100 ml; Contrast route: INTRAVENOUS (IV); COMPARISON: US abdomen limited [id number] 11/25/2024 9:29 AM RADIATION DOSE METRICS: Total DLP (mGy-cm): 579.42 FINDINGS: Lungs: Lung bases are clear. Liver: The liver is normal. Gallbladder and biliary ducts: The gallbladder is normal. There is no biliary dilation. Pancreas: The pancreas is unremarkable. Spleen: The spleen is unremarkable. Adrenal glands: The adrenal glands are unremarkable. Kidneys and ureters: Kidneys are morphologically normal. Renal parenchymal enhancement pattern is normal bilaterally. There is a mildly prominent right extrarenal pelvis and mildly intermittently distended right ureter. No catalino hydronephrosis. No visible ureteral stone. There is subtle asymmetric urothelial enhancement in the proximal right ureter which is most conspicuous on axial series 4, image 36. The left kidney and ureter are normal. Stomach and bowel: The stomach is unremarkable. The small bowel is nondilated. The colon is unremarkable. Appendix: The appendix is normal. Intraperitoneal space: There is no free air or significant intraperitoneal free fluid. Vasculature: The abdominal aorta is normal. There is no aneurysm or dissection. The portal, splenic and superior mesenteric veins are patent. Lymph nodes: There is no lymphadenopathy in the retroperitoneum, mesentery, pelvis or inguinal regions. Urinary bladder: The urinary bladder is nondistended, limiting assessment of wall thickness. Reproductive: The uterus is unremarkable. There is no adnexal mass or large cyst. Bones/joints: Bones are unremarkable. Soft tissues: The abdominal wall is intact. CT/CT abdomen pelvis w con* [id number] IMPRESSION: Questionably abnormal right ureter with subtle asymmetric enhancement. Findings suggest ascending urinary tract infection. No sign of pyelonephritis or obstruction. Correlate with urinalysis.
[2024-12-02] MEDS: iohexol 350 mg/mL 500 mL Btl (per mL) PO (09:35)
[2024-12-02] MEDS: iohexol 350 mg/mL 500 mL Btl (per mL) IV (09:46)
== END 2024-12-02 08:25 | disposition home or self-care (01) ==
PROVIDERS: PCP Family Medicine; Visit Provider Family Medicine
DX: R10.31 Right lower quadrant pain (principal); R93.41 Abnormal radiologic findings on diagnostic imaging of renal pelvis, ureter, or bladder
CPT/HCPCS: 74177